=== PATIENT | female | born 1985 | race Caucasian/White ===

== ENCOUNTER 2022-10-17 13:23 | Outpatient (CLI) | payer OTHER, SELFPAY ==
[2022-10-17 21:54] LABS: Chloride* 101 mmol/L (96-114); Potassium* 4.3 mmol/L (3.6-5.1); Sodium* 138 mmol/L (135-149)
[2022-10-17 21:56] LABS: Cholesterol* 185 mg/dL (90-199)
[2022-10-17 21:57] LABS: Blood Urea Nitrogen* 10 mg/dL (5-24); Carbon Dioxide* 31 mmol/L (20-32); Creatinine* 0.6 mg/dL (0.5-1.5); Estimated Glomerular Filt Rate 117 ml/min; Glucose* 134 mg/dL (60-115); Triglycerides* 104 mg/dL (40-149)
[2022-10-17 21:58] LABS: HDL Cholesterol* 45 mg/dL (>=50); LDL Cholesterol Calculated 119 mg/dL (<100)
[2022-10-17 22:07] LABS: Vitamin D 25 Hydroxy* 65 ng/mL (30-80)
== END 2022-10-17 13:24 | disposition home or self-care (01) ==
PROVIDERS: PCP Physician Assistant Medical; Visit Provider Physician Assistant Medical
DX: Z00.00 Encounter for general adult medical examination without abnormal findings (principal); I10 Essential (primary) hypertension; E55.9 Vitamin D deficiency, unspecified; R73.03 Prediabetes
CPT/HCPCS: 80048; 80061; 82306; 84443

== ENCOUNTER 2023-11-28 09:14 | Outpatient (CLI) | payer OTHER, SELFPAY | END 2023-11-28 09:15 | disposition home or self-care (01) | LOC: NFLDREF 12-10 12:55 | PROVIDERS: PCP Physician Assistant Medical; Referring Provider Physician Assistant Medical; Visit Provider Physician Assistant Medical | DX: E11.9 Type 2 diabetes mellitus without complications (principal); Z13.29 Encounter for screening for other suspected endocrine disorder; Z13.220 Encounter for screening for lipoid disorders; Z13.21 Encounter for screening for nutritional disorder | CPT/HCPCS: 80053; 80061; 82043; 82570; 82607; 84443 ==